=== PATIENT | female | born 1970 | race African-American/Black ===

== ENCOUNTER 2020-12-23 13:41 | Emergency (ER) | payer MEDICARE ==
[~2020-12-23] VITALS: Ht 157.5 cm; Wt 78.2 kg
[2020-12-23 14:02] VITALS: BP 142/98
[2020-12-23 14:44] LABS: CLARITY URINE CLOUDY (CLEAR); COLOR URINE YELLOW (YELLOW); KETONES URINE NEGATIVE (NEGATIVE); LEUKOCYTE ESTERASE URINE NEGATIVE (NEGATIVE); NITRITE URINE NEGATIVE (NEGATIVE); OCCULT BLOOD URINE NEGATIVE (NEGATIVE); PH URINE 6.5 (4.5-8.0); PROTEIN URINE NEGATIVE (NEGATIVE); SPECIFIC GRAVITY URINE 1.005 (1.005-1.030); UROBILINOGEN URINE 0.2 E.U./dL (0.2-1.0)
[2020-12-23] MEDS ORDERED: HYDROCODONE/ACETAMINOPHEN 5/325MG TABLET PO STA (14:49)
[2020-12-23] MEDS ORDERED: ONDANSETRON HCL 4MG/2ML INJ IM ONE (15:00)
== END 2020-12-23 17:01 | disposition home or self-care (01) ==
LOC: ER 13:41
DX: R51.9 Headache, unspecified (principal); Z88.6 Allergy status to analgesic agent; Z88.8 Allergy status to other drugs, medicaments and biological substances; Z98.890 Other specified postprocedural states
CPT/HCPCS: 70450; 81003; 81025; 87070; 87430; 96372; 99284; J2405

== ENCOUNTER 2024-12-12 20:05 | Inpatient (IN) | payer MEDICARE ==
[~2024-12-12] VITALS: Ht 162.6 cm; Wt 81.6 kg
[~2024-12-12 20:05] MED LIST: LORA-250 MT; ONDA4TAB5 PO; PANT40TA51 MT; ZOLP10TA2 PO
[2024-12-12] MEDS: ACETAMINOPHEN 1000MG/100ML 100 ML IV ONE (20:54)
[2024-12-12] MEDS: ONDANSETRON HCL 4MG/2ML INJ IV ONE (20:55)
[2024-12-12] MEDS: DIAZEPAM 5 MG/ML 2ML SYR IM ONE (20:55)
[2024-12-12 21:17] LABS: BASOPHILS % 1.2 % (0.0-2.0); EOSINOPHILS % 0.5 % (0.0-5.0); HEMATOCRIT. 36.7 % (36.0-48.0); HEMOGLOBIN. 11.8 g/dL (12.0-16.0); LYMPHOCYTES % 31.7 % (20.0-50.0); MEAN CORPUSCULAR HEMOGLOBIN 26.5 pg (28.0-32.0); MEAN CORPUSCULAR HGB CONC 32.2 g/dL (31.0-37.0); MEAN CORPUSCULAR VOLUME 82.4 fL (81.0-99.0); MEAN PLATELET VOLUME 7.4 fl (7.4-10.4); MONOCYTES % 7.2 % (2.0-8.0); NEUTROPHILS % 59.4 % (40.0-76.0); PLATELET 310 x1000/uL (130-400); RED BLOOD CELL COUNT 4.45 mill/uL (4.2-5.4); RED CELL DISTRIBUTION WIDTH 13.9 % (11.6-14.6); WHITE BLOOD COUNT 6.7 x1000/uL (4.5-11.0)
[2024-12-12 21:25] LABS: CHLORIDE 105 mEq/L (98-107); POTASSIUM 3.4 mEq/L (3.5-5.1); SODIUM 141 mEq/L (136-145)
[2024-12-12 21:26] LABS: CALCIUM 9.3 mg/dL (8.7-10.4); CARBON DIOXIDE 28 mEq/L (21-32)
[2024-12-12 21:30] LABS: HCG SCREEN NEGATIVE
[2024-12-12 21:31] LABS: CREATININE 0.6 mg/dL (0.6-1.0); GLUCOSE 105 mg/dL (70-105); UREA NITROGEN BLOOD 8 mg/dL (9-23)
[2024-12-12] MEDS ORDERED: HYDROMORPHONE HCL/PF 2MG/ML INJ IV ONE (21:45)
[2024-12-12] MEDS: HYDROMORPHONE HCL/PF 1MG/ML INJ IV NR (22:01)
[2024-12-13] MEDS: PROCHLORPERAZINE 10MG/2ML VIAL IV ONE (00:47)
[2024-12-13] MEDS: HYDROMORPHONE HCL/PF 2MG/ML INJ IV ONE (00:48)
[2024-12-13] MEDS: SODIUM CHLORIDE 0.9% 1,000 ML IV ONE (00:48)
[2024-12-13 02:59] VITALS: BP 141/84; PULSE 72; RESP 18; TEMP 36.3
[2024-12-13] MEDS: LORAZEPAM 1MG TABLET PO PRN (03:29)
[2024-12-13] MEDS: ONDANSETRON HCL 4MG TABLET PO PRN (03:51)
[2024-12-13] MEDS: OXYCODONE HCL/ACETAMINOPHEN 5/325MG TABLET PO PRN ×2 (03:56→22:17)
[2024-12-13 04:00] VITALS: BP 141/84; PULSE 72; RESP 20; TEMP 36.3; O2SAT 99
[2024-12-13] MEDS: CYCLOBENZAPRINE 10MG TABLET PO SCH (05:54)
[2024-12-13 08:00] VITALS: BP 141/82; PULSE 75; RESP 20; TEMP 36.1; O2SAT 95
[2024-12-13] MEDS: PANTOPRAZOLE 40MG DR TABLET PO SCH (08:53)
[2024-12-13] MEDS: POTASSIUM CHLORIDE 20MEQ TABLET SR PO SCH (09:30)
[2024-12-13] MEDS: SUMATRIPTAN SUCCINATE 6MG/0.5ML VIAL SUBCUT SCH (10:00)
[2024-12-13] MEDS: SODIUM CHLORIDE 0.9% 1,000 ML IV SCH (10:45)
[2024-12-13] MEDS ORDERED: NALOXONE HCL 0.4MG/ML VIAL IV PRN (11:45)
[2024-12-13] MEDS: ONDANSETRON HCL 4MG/2ML INJ IV PRN (14:13)
[2024-12-13] MEDS: HYDROMORPHONE HCL/PF 2MG/ML INJ IV PRN (14:58)
[2024-12-13 16:00] VITALS: BP 142/82; PULSE 81; RESP 18; TEMP 36.2; O2SAT 96
[2024-12-13 20:00] VITALS: BP 142/88; PULSE 85; RESP 20; TEMP 36.6; O2SAT 97
[2024-12-14] VITALS: BP 119/85; PULSE 84; RESP 19; TEMP 36.6; O2SAT 96
[2024-12-14 01:27] VITALS: BP 119/83; PULSE 84; RESP 19; TEMP 36.6; O2SAT 96
[2024-12-14] MEDS ORDERED: ZOLPIDEM TARTRATE 5MG TABLET PO PRN (06:15)
[2024-12-14 08:00] VITALS: BP 131/91; PULSE 75; RESP 18; O2SAT 95
[2024-12-14] MEDS: GABAPENTIN 300MG CAPSULE PO SCH (14:00)
[2024-12-14] MEDS: HYDROMORPHONE HCL/PF 2MG/ML INJ IV PRN (14:05)
[2024-12-14 16:00] VITALS: BP 167/100; PULSE 75; RESP 20; TEMP 36.7; O2SAT 95
[2024-12-14 20:00] VITALS: BP 158/107; PULSE 71; RESP 20; TEMP 37.1; O2SAT 98
[2024-12-14] MEDS ORDERED: LORAZEPAM 2MG/ML UD SYRINGE IV SCH (20:00)
[2024-12-14] MEDS ORDERED: CLONIDINE 0.1MG TABLET PO PRN (22:00)
[2024-12-14 22:58] LABS: BASOPHILS % 0.8 % (0.0-2.0); EOSINOPHILS % 0.7 % (0.0-5.0); HEMATOCRIT. 36.6 % (36.0-48.0); HEMOGLOBIN. 11.9 g/dL (12.0-16.0); LYMPHOCYTES % 26.3 % (20.0-50.0); MEAN CORPUSCULAR HEMOGLOBIN 27.1 pg (28.0-32.0); MEAN CORPUSCULAR HGB CONC 32.5 g/dL (31.0-37.0); MEAN CORPUSCULAR VOLUME 83.4 fL (81.0-99.0); MEAN PLATELET VOLUME 7.7 fl (7.4-10.4); MONOCYTES % 6.7 % (2.0-8.0); NEUTROPHILS % 65.5 % (40.0-76.0); PLATELET 315 x1000/uL (130-400); RED BLOOD CELL COUNT 4.39 mill/uL (4.2-5.4); RED CELL DISTRIBUTION WIDTH 13.6 % (11.6-14.6); WHITE BLOOD COUNT 6.1 x1000/uL (4.5-11.0)
[2024-12-14 23:05] LABS: CHLORIDE 107 mEq/L (98-107); POTASSIUM 3.4 mEq/L (3.5-5.1); SODIUM 140 mEq/L (136-145)
[2024-12-14 23:06] LABS: CALCIUM 9.1 mg/dL (8.7-10.4); CARBON DIOXIDE 28 mEq/L (21-32)
[2024-12-14 23:11] LABS: CREATININE 0.6 mg/dL (0.6-1.0); GLUCOSE 71 mg/dL (70-105); UREA NITROGEN BLOOD 8 mg/dL (9-23)
[2024-12-15] VITALS: BP 141/82; PULSE 71; RESP 19; TEMP 35.6; O2SAT 96
[2024-12-15] MEDS: POTASSIUM CHLORIDE 20MEQ TABLET SR PO NR (01:22)
[2024-12-15 04:00] VITALS: BP 124/77; PULSE 75; RESP 20; TEMP 37.1; O2SAT 96
[2024-12-15 08:00] VITALS: BP 138/89; PULSE 74; RESP 18; O2SAT 97
[2024-12-15 08:09] LABS: BASOPHILS % 0.7 % (0.0-2.0); EOSINOPHILS % 0.6 % (0.0-5.0); HEMOGLOBIN. 11.6 g/dL (12.0-16.0); LYMPHOCYTES % 26.4 % (20.0-50.0); MEAN CORPUSCULAR HEMOGLOBIN 26.7 pg (28.0-32.0); MEAN CORPUSCULAR HGB CONC 32.1 g/dL (31.0-37.0); MEAN CORPUSCULAR VOLUME 83.1 fL (81.0-99.0); MEAN PLATELET VOLUME 7.6 fl (7.4-10.4); MONOCYTES % 5.7 % (2.0-8.0); NEUTROPHILS % 66.6 % (40.0-76.0); PLATELET 314 x1000/uL (130-400); RED BLOOD CELL COUNT 4.33 mill/uL (4.2-5.4); RED CELL DISTRIBUTION WIDTH 13.6 % (11.6-14.6); WHITE BLOOD COUNT 5.8 x1000/uL (4.5-11.0)
[2024-12-15 08:45] LABS: CARBON DIOXIDE 27 mEq/L (21-32); CHLORIDE 106 mEq/L (98-107); SODIUM 140 mEq/L (136-145)
[2024-12-15 08:46] LABS: CALCIUM 9.4 mg/dL (8.7-10.4)
[2024-12-15] MEDS: LORAZEPAM 2MG/ML UD SYRINGE IV PRN (08:48)
[2024-12-15 08:51] LABS: CREATININE 0.6 mg/dL (0.6-1.0); GLUCOSE 75 mg/dL (70-105); UREA NITROGEN BLOOD 10 mg/dL (9-23)
[2024-12-15 12:00] VITALS: BP 132/98; PULSE 76; RESP 20; TEMP 36.5; O2SAT 95
[2024-12-15 16:00] VITALS: BP 105/66; PULSE 79; RESP 20; TEMP 35.6; O2SAT 98
[2024-12-15 20:00] VITALS: BP 128/84; PULSE 74; RESP 19; TEMP 36.5; O2SAT 98
[2024-12-16] VITALS (7 sets, daily range): BP systolic 111–129; BP diastolic 77–94; PULSE 69–80; RESP 18–20; TEMP 35.8–37.2; O2SAT 95–97
[2024-12-16 06:44] LABS: BASOPHILS % 0.7 % (0.0-2.0); EOSINOPHILS % 1.3 % (0.0-5.0); HEMATOCRIT. 35.7 % (36.0-48.0); HEMOGLOBIN. 11.8 g/dL (12.0-16.0); MEAN CORPUSCULAR HEMOGLOBIN 27.3 pg (28.0-32.0); MEAN CORPUSCULAR VOLUME 82.8 fL (81.0-99.0); MEAN PLATELET VOLUME 7.6 fl (7.4-10.4); MONOCYTES % 8.2 % (2.0-8.0); NEUTROPHILS % 60.8 % (40.0-76.0); PLATELET 290 x1000/uL (130-400); RED BLOOD CELL COUNT 4.31 mill/uL (4.2-5.4); RED CELL DISTRIBUTION WIDTH 13.5 % (11.6-14.6); WHITE BLOOD COUNT 5.9 x1000/uL (4.5-11.0)
[2024-12-16 06:52] LABS: CALCIUM 9.1 mg/dL (8.7-10.4); CARBON DIOXIDE 30 mEq/L (21-32); CHLORIDE 104 mEq/L (98-107); POTASSIUM 3.7 mEq/L (3.5-5.1); SODIUM 142 mEq/L (136-145)
[2024-12-16 06:58] LABS: CREATININE 0.6 mg/dL (0.6-1.0); GLUCOSE 99 mg/dL (70-105); UREA NITROGEN BLOOD 9 mg/dL (9-23)
[2024-12-16 06:59] LABS: THYROID STIMULATING HORMONE 0.41 uIU/mL (0.55-4.78)
[2024-12-16] MEDS: FAMOTIDINE 20MG TABLET PO SCH (09:51)
== END 2024-12-16 19:30 | disposition left against medical advice (07) | DRG 199 ==
LOC: ER 20:05 → EDBEDREQ 23:10 → 6EST 12-13 00:31 → EDBEDREQ 12-13 00:39 → ENRESERV 12-13 00:58 → 7WST 12-15 17:29
PROVIDERS: ADMIT Internal Medicine; ATTEND Internal Medicine
PROC: 02HV33Z Insertion of Infusion Device into Superior Vena Cava, Percutaneous Approach (ICD-10-PCS; principal; 2024-12-13)
PROC: B548ZZA Ultrasonography of Superior Vena Cava, Guidance (ICD-10-PCS; 2024-12-13)
DX: I16.0 Hypertensive urgency (principal); G81.94 Hemiplegia, unspecified affecting left nondominant side; R51.9 Headache, unspecified; E66.9 Obesity, unspecified; E87.6 Hypokalemia; M25.472 Effusion, left ankle; M25.572 Pain in left ankle and joints of left foot; R00.2 Palpitations; G89.4 Chronic pain syndrome; M48.061 Spinal stenosis, lumbar region without neurogenic claudication; F41.9 Anxiety disorder, unspecified; R53.81 Other malaise; Z76.5 Malingerer [conscious simulation]; Z88.5 Allergy status to narcotic agent; Z68.30 Body mass index [BMI] 30.0-30.9, adult; I48.91 Unspecified atrial fibrillation
CPT/HCPCS: 36415; 36573; 70551; 71045; 72131; 73600; 80048; 84443; 84703; 85025; 93005; 93306; 93970; 96365; 96372; 96375; 97162; 99285; A4606; C1725; C1769; J0780; J1171; J2060; J2405; J3030; J7030; Q0162; J0131